=== PATIENT | female | born 1975 | race Caucasian/White ===

== ENCOUNTER 2020-07-19 16:41 | Emergency (ER) | payer OTHER ==
[2020-07-19 20:36] LABS: HEMOGLOBIN 13.3 gm/dl (12.3-15.3); RED BLOOD COUNT 4.73 M/UL (4.00-5.10); WHITE BLOOD COUNT 11.4 K/UL (4.5-11.0)
[2020-07-19 20:55] LABS: BUN/CREATININE RATIO 16 (0-10)
[2020-07-20] MEDS ORDERED: IBUPROFEN800 MG PO (00:50)
[2020-07-20] MEDS ORDERED: BENTYL 20MG TAB20 MG PO (00:50)
[2020-07-20] MEDS ORDERED: COLACE 100MG C100 MG PO (00:50)
[2020-07-20] MEDS ORDERED: ZOFRAN 4 MG TAB4 MG PO (00:50)
== END 2020-07-20 01:05 | disposition home or self-care (01) ==
LOC: ER1 16:41
PROVIDERS: Emergency Medicine
DX: R10.84 Generalized abdominal pain (principal); R35.0 Frequency of micturition; R30.0 Dysuria
CPT/HCPCS: 36415; 80053; 81001; 84484; 84703; 85025; 93005; 96374; 96375; 99284; J2270; J2405; Q9967

== ENCOUNTER 2020-11-18 18:54 | Emergency (ER) | payer OTHER ==
[~2020-11-18 18:54] MED LIST: BENTYL 20MG TAB20 MG PO; COLACE 100MG C100 MG PO; IBUPROFEN800 MG PO; ZOFRAN 4 MG TAB4 MG PO
[2020-11-18 20:16] LABS: HEMOGLOBIN 12.9 gm/dl (12.3-15.3); RED BLOOD COUNT 4.55 M/UL (4.00-5.10)
[2020-11-18 20:37] LABS: BUN/CREATININE RATIO 12 (0-10)
[2020-11-19] MEDS ORDERED: PERCOCET 5/325 T1 EA PO (00:11)
== END 2020-11-19 00:50 | disposition home or self-care (01) ==
LOC: ER1 18:54
PROVIDERS: Physician Assistant
DX: R10.9 Unspecified abdominal pain (principal); E03.9 Hypothyroidism, unspecified
CPT/HCPCS: 80053; 81001; 83605; 83690; 85025; 87086; 99284